=== PATIENT | female | born 1945 ===

== ENCOUNTER 2017-02-14 13:37 | Emergency (ER) | payer MEDICARE, OTHER ==
[2017-02-14 13:37] VITALS: BMI 32.6
[2017-02-14 13:58] VITALS: RESP 18; TEMP 98.5
--- NOTE | 2017-02-14 14:48 | ED PDOC ---
Arrival/HPI - General Chief Complaint: Back Pain Time Seen by Provider: 02/14/17 14:25 Historian: Patient - History of Present Illness Narrative History of Present Illness (Text): 02/14/17 14:37 71yo female with PMhx of Lupus who present with complaint of b/l neck pain. the daughter who translated states it started when she woke up yesterday morning. states she took Aleve last night with some relieve. Her pain is with movement of the neck. She denies nuchal ridigity, fever, rash, focal weakness, back pain , nausea, headache, visual changes, any other complaint. Past Medical History - Provider Review Nursing Documentation Reviewed: Yes - Infectious Disease Hx of Infectious Diseases: None - Tetanus Immunization Tetanus Immunization: Unknown - Cardiac Hx Cardiac Disorders: No Hx Pacemaker: No - Pulmonary Hx Respiratory Disorders: No - Neurological Hx Paralysis: No - HEENT Hx HEENT Disorder: No - Renal Hx Renal Disorder: No - Endocrine/Metabolic Hx Endocrine Disorders: Yes Hx Systemic Lupus Erythematosus: Yes - Hematological/Oncological Hx Blood Transfusions: No Hx Blood Transfusion Reaction: No - Integumentary Hx Dermatological Disorder: No Other/Comment: LUPUS - Musculoskeletal/Rheumatological Hx Musculoskeletal Disorders: No - Gastrointestinal Hx Gastrointestinal Disorders: No - Genitourinary/Gynecological Hx Genitourinary Disorders: No - Psychiatric Hx Emotional Abuse: No Hx Physical Abuse: No Hx Substance Use: No - Surgical History Hx Cholecystectomy: Yes - Anesthesia Hx Anesthesia: Yes Hx Anesthesia Reactions: No Hx Malignant Hyperthermia: No - Suicidal Assessment Feels Threatened In Home Enviroment: No Family/Social History - Physician Review Nursing Documentation Reviewed: Yes Family/Social History: Unknown Family HX Smoking Status: Never Smoked Hx Alcohol Use: No Hx Substance Use: No Hx Substance Use Treatment: No Allergies/Home Meds Allergies/Adverse Reactions: Allergies aspirin Allergy (Mild, Verified 02/14/17 13:54) NAUSEA Home Medications: Home Meds Medication Instructions Recorded Confirmed Hydroxychloroquine Sulfate 200 mg PO BID 10/08/13 02/14/17 [Plaquenil] Atorvastatin [Lipitor] 80 mg PO DAILY 02/05/16 02/14/17 Ergocalciferol (Vitamin D2) 50,000 iu PO DAILY 02/05/16 02/14/17 [Vitamin D2] Folic Acid 1 mg PO DAILY 02/05/16 02/14/17 Ursodiol [Jax Forte] 500 mg PO TID 02/05/16 02/14/17 Ibuprofen [Advil] 200 mg PO PRN PRN 04/15/16 02/14/17 Review of Systems - Physician Review All systems were reviewed & negative as marked: Yes - Review of Systems Constitutional: Normal Eyes: Normal ENT: Normal Respiratory: Normal Cardiovascular: Normal Gastrointestinal: Normal Genitourinary Female: Normal Musculoskeletal: Neck Pain Skin: Normal Neurological: Normal Endocrine: Normal Hemo/Lymphatic: Normal Psychiatric: Normal Physical Exam Vital Signs Reviewed: Yes Vital Signs Temp Pulse Resp BP Pulse Ox 02/14/17 16:38 65 18 128/71 98 02/14/17 15:12 68 18 132/75 98 02/14/17 13:57 98.5 F 67 18 135/81 96 Temperature: Afebrile Blood Pressure: Normal Pulse: Regular Respiratory Rate: Normal Appearance: Positive for: Well-Appearing, Non-Toxic, Comfortable Pain Distress: None Mental Status: Positive for: Alert and Oriented X 3 - Systems Exam Head: Present: Atraumatic, Normocephalic Pupils: Present: PERRL Extroacular Muscles: Present: EOMI Conjunctiva: Present: Normal Mouth: Present: Moist Mucous Membranes Neck: Present: Normal Range of Motion (With pain on lateral movement of neck ), Paraspinal Tenderness (B/L). No: MIDLINE TENDERNESS Respiratory/Chest: Present: Clear to Auscultation, Good Air Exchange. No: Respiratory Distress, Accessory Muscle Use Cardiovascular: Present: Regular Rate and Rhythm, Normal S1, S2. No: Murmurs Abdomen: Present: Normal Bowel Sounds. No: Tenderness, Distention, Peritoneal Signs Back: Present: Normal Inspection Upper Extremity: Present: Normal Inspection. No: Cyanosis, Edema Lower Extremity: Present: Normal Inspection. No: Edema Neurological: Present: GCS=15, CN II-XII Intact, Speech Normal Skin: Present: Warm, Dry, Normal Color. No: Rashes Psychiatric: Present: Alert, Oriented x 3, Normal Insight, Normal Concentration Medical Decision Making ED Course and Treatment: 02/14/17 16:09 71yo female in ED for neck pain she was hemodynamically stable. No meningeal signs. Neurological intact. No fever. Pain most likely MS in nature. Her pain was controlled in ED with Tramadol Cervical Spine xray Disc degeneration on C5-6 and 6-7. Result was DW the pt. She was DC home with Tramadol. Advised to applied warm compress to area. Referred to her PMD. TRT ED for any new or worsening symptoms. - RAD Interpretation Radiology Orders: 02/14/17 14:34 CERVICAL SPINE >18YR W/OBLIQUE [RAD] Stat - Medication Orders Current Medication Orders: Discontinued Medications Tramadol HCl (Ultram) 50 mg PO STAT STA Stop: 02/14/17 14:35 Last Admin: 02/14/17 15:24 Dose: 50 mg MAR Pain Assessment Document 02/14/17 15:24 EQ (Rec: 02/14/17 15:24 EQ [facility] [id number]) Pain Reassessment Is this a pain reassessment? No Sleep Is patient sleeping during reassessment? No Presence of Pain Presence of Pain Yes Disposition/Present on Arrival - Present on Arrival Any Indicators Present on Arrival: No History of DVT/PE: No History of Uncontrolled Diabetes: No Urinary Catheter: No History of Decub. Ulcer: No History Surgical Site Infection Following: None - Disposition Have Diagnosis and Disposition been Completed?: Yes Diagnosis: Neck pain Disposition: HOME/ ROUTINE Disposition Time: 16:15 Patient Plan: Discharge Condition: STABLE Discharge Instructions (ExitCare): Cervical Sprain (ED) Additional Instructions: Take medication as directed Apply warm compress to area Follow up with your doctor Return to ED for any new or worsening symptoms Prescriptions: traMADol [Ultram] 50 mg PO TID #12 tab Referrals: Arvind Lyon MD [Primary Care Provider] - Follow up with primary Forms: [employer] (Hebrew)
[2017-02-14 15:12] VITALS: O2SAT 98
--- NOTE | 2017-02-14 16:04 | RAD ---
PROCEDURE: Cervical Spine Radiographs. HISTORY: Pain. COMPARISON: None. FINDINGS: BONES: Alignment maintained. No fracture. Dens Intact. DISC SPACES: There is disc degeneration at C5-6 and C6-7 SOFT TISSUES: Normal. No prevertebral soft tissue swelling. OTHER FINDINGS: None. IMPRESSION: Disc degeneration at C5-6 and C6-7
[2017-02-14 16:38] VITALS: BP 128/71; PULSE 65
== END 2017-02-14 16:50 | disposition home or self-care (01) ==
LOC: ED 13:37
DX: M54.2 Cervicalgia (principal)

== ENCOUNTER 2017-05-06 13:05 | Emergency (ER) | payer MEDICARE, OTHER ==
[2017-05-06 13:05] VITALS: BMI 32.6
[2017-05-06 13:19] VITALS: TEMP 98.5
--- NOTE | 2017-05-06 13:47 | ED PDOC ---
Arrival/HPI - General Chief Complaint: Trauma Time Seen by Provider: 05/06/17 13:31 Historian: Patient - History of Present Illness Narrative History of Present Illness (Text): 05/06/17 13:50 Lyssa Ribeiro is a 71 year old female, whose past medical history includes lupus and a cholecystectomy, who presents to the emergency department complaining of bilateral knee and wrist pain s/p fall. Patient states she tripped trying to run to the bus. Patient denies any fever, chills, chest pain, shortness of breath, nausea, vomiting, diarrhea, back pain, neck pain, headache, dizziness or any other complaints. Time/Duration: Other (today) Symptom Onset: Sudden Symptom Course: Unchanged Activities at Onset: Light Context: Walking, Street Past Medical History - Provider Review Nursing Documentation Reviewed: Yes - Infectious Disease Hx of Infectious Diseases: None - Tetanus Immunization Tetanus Immunization: Unknown - Cardiac Hx Cardiac Disorders: No Hx Pacemaker: No - Pulmonary Hx Respiratory Disorders: No - Neurological Hx Paralysis: No - HEENT Hx HEENT Disorder: No - Renal Hx Renal Disorder: No - Endocrine/Metabolic Hx Endocrine Disorders: Yes Hx Systemic Lupus Erythematosus: Yes - Hematological/Oncological Hx Blood Transfusions: No Hx Blood Transfusion Reaction: No - Integumentary Hx Dermatological Disorder: No Other/Comment: LUPUS - Musculoskeletal/Rheumatological Hx Musculoskeletal Disorders: No - Gastrointestinal Hx Gastrointestinal Disorders: No - Genitourinary/Gynecological Hx Genitourinary Disorders: No - Psychiatric Hx Emotional Abuse: No Hx Physical Abuse: No Hx Substance Use: No - Surgical History Hx Cholecystectomy: Yes - Anesthesia Hx Anesthesia: Yes Hx Anesthesia Reactions: No Hx Malignant Hyperthermia: No - Suicidal Assessment Feels Threatened In Home Enviroment: No Family/Social History - Physician Review Nursing Documentation Reviewed: Yes Family/Social History: Unknown Family HX Smoking Status: Never Smoked Hx Alcohol Use: No Hx Substance Use: No Hx Substance Use Treatment: No Allergies/Home Meds Allergies/Adverse Reactions: Allergies aspirin Allergy (Mild, Verified 02/14/17 13:54) NAUSEA Home Medications: Home Meds Medication Instructions Recorded Confirmed Hydroxychloroquine Sulfate 200 mg PO BID 10/08/13 02/14/17 [Plaquenil] Atorvastatin [Lipitor] 80 mg PO DAILY 02/05/16 02/14/17 Ergocalciferol (Vitamin D2) 50,000 iu PO DAILY 02/05/16 02/14/17 [Vitamin D2] Folic Acid 1 mg PO DAILY 02/05/16 02/14/17 Ursodiol [Jax Forte] 500 mg PO TID 02/05/16 02/14/17 Ibuprofen [Advil] 200 mg PO PRN PRN 04/15/16 02/14/17 Review of Systems - Physician Review All systems were reviewed & negative as marked: Yes - Review of Systems Constitutional: Normal Eyes: Normal ENT: Normal Respiratory: Normal. absent: SOB, Cough Cardiovascular: Normal. absent: Chest Pain, Palpitations Gastrointestinal: Normal. absent: Abdominal Pain, Diarrhea, Nausea, Vomiting Genitourinary Female: Normal. absent: Dysuria, Frequency, Hematuria, Urine Output Changes Musculoskeletal: Other (knee pain and wrist pain). absent: Back Pain, Neck Pain Skin: Normal. absent: Rash Neurological: Normal. absent: Headache, Dizziness Endocrine: Normal Hemo/Lymphatic: Normal Psychiatric: Normal Physical Exam Vital Signs Reviewed: Yes Vital Signs Temp Pulse Resp BP Pulse Ox 05/06/17 14:51 79 17 140/68 97 05/06/17 13:17 98.5 F 82 18 144/70 98 Temperature: Afebrile Blood Pressure: Normal Pulse: Regular Respiratory Rate: Normal Appearance: Positive for: Well-Appearing, Non-Toxic, Comfortable Pain Distress: None Mental Status: Positive for: Alert and Oriented X 3 - Systems Exam Head: Present: Atraumatic, Normocephalic Pupils: Present: PERRL Extroacular Muscles: Present: EOMI Conjunctiva: Present: Normal Mouth: Present: Moist Mucous Membranes Neck: Present: Normal Range of Motion Respiratory/Chest: Present: Clear to Auscultation, Good Air Exchange. No: Respiratory Distress, Accessory Muscle Use Cardiovascular: Present: Regular Rate and Rhythm, Normal S1, S2. No: Murmurs Abdomen: Present: Normal Bowel Sounds. No: Tenderness, Distention, Peritoneal Signs Back: Present: Normal Inspection Upper Extremity: Present: Tenderness (bilateral wrist tenderness). No: Cyanosis , Edema Lower Extremity: Present: Tenderness (bilateral knee tenderness). No: Edema Neurological: Present: GCS=15, CN II-XII Intact, Speech Normal Skin: Present: Warm, Dry, Normal Color. No: Rashes Psychiatric: Present: Alert, Oriented x 3, Normal Insight, Normal Concentration Medical Decision Making ED Course and Treatment: 05/06/17 13:47 Impression: 71 year old female presents to the emergency department with bilateral knee and wrist pain s/p fall. Plan: -- CT Head -- Xray Knee -- Xray Pelvis -- Xray Wrist Rt/Lt -- Tylenol -- Reassess and disposition Progress Notes: 05/06/17 14:39 CT Head reviewed, shows: HEMORRHAGE: No intracranial hemorrhage. BRAIN: Pick[place]-white matter differentiation is preserved. There is stable dural-based hyperaerated dense lesion along the right posteromedial temporal lobe and right cavernous sinus which may represent a meningioma. There is no mass effect or abnormal extra-axial fluid collection. There is mild age-related global parenchymal volume loss and proportionate enlargement of the ventricles and cortical sulci . CALVARIUM: The skull base and calvarium are normal. PARANASAL SINUSES: Predominantly clear. MASTOID AIR CELLS: Predominantly clear. OTHER FINDINGS: None. IMPRESSION: No acute intracranial abnormality. Stable dural-based lesion along the right posteromedial temporal lobe and cavernous sinus. A dedicated MRI of the brain without and with intravenous contrast on a nonemergent basis is recommended for further evaluation. 05/06/17 15:01 pain improved. no e/o of fx on current imaging. pt advised outpt fu and return precautiosn. - RAD Interpretation Radiology Orders: 05/06/17 13:43 HEAD W/O CONTRAST [CT] Stat WRIST 3 VIEWS BI [RAD] Stat KNEE W PATELLA BILAT 3 VIEW [RAD] Stat 05/06/17 13:44 PELVIS ONE VIEW [RAD] Stat - Medication Orders Current Medication Orders: Discontinued Medications Acetaminophen (Tylenol 325mg Tab) 650 mg PO STAT STA Stop: 05/06/17 13:45 Last Admin: 05/06/17 13:57 Dose: 650 mg MAR Pain/Vitals Document 05/06/17 13:57 SE (Rec: 05/06/17 13:57 SE [id number]) Pain Reassessment Is This A Pain ReAssessment? No Sleep Is patient sleeping during reassessment? No Pain Scale Used Pain Scale Used Numeric - Scribe Statement The provider has reviewed the documentation as recorded by the Scribkaity Starks All medical record entries made by the Scribe were at my direction and personally dictated by me. I have reviewed the chart and agree that the record accurately reflects my personal performance of the history, physical exam, medical decision making, and the department course for this patient. I have also personally directed, reviewed, and agree with the discharge instructions and disposition. Disposition/Present on Arrival - Present on Arrival Any Indicators Present on Arrival: No History of DVT/PE: No History of Uncontrolled Diabetes: No Urinary Catheter: No History of Decub. Ulcer: No History Surgical Site Infection Following: None - Disposition Have Diagnosis and Disposition been Completed?: Yes Diagnosis: Fall, Head injury, Knee sprain, Wrist sprain Disposition: HOME/ ROUTINE Disposition Time: 03:00 Patient Problems: Current Active Problems Problem Status Onset Fall Acute Head injury Acute Knee sprain Acute Wrist sprain Acute Condition: STABLE Discharge Instructions (ExitCare): Preventing Falls in the Older Adult, Knee Sprain (DC), Minor Head Injury, Common Wrist Injuries Additional Instructions: please follow up with your doctor. return to er with worsening symptoms or concerns. Referrals: Arvind Lyon MD [Primary Care Provider] - Follow up with primary Forms: [employer] (Portuguese)
--- NOTE | 2017-05-06 14:40 | CT ---
PROCEDURE: CT HEAD WITHOUT CONTRAST. HISTORY: trauma COMPARISON: 05/31/2014. TECHNIQUE: Axial computed tomography images were obtained through the head/brain without intravenous contrast. Radiation dose: Total exam DLP = 823.94 mGy-cm. This CT exam was performed using one or more of the following dose reduction techniques: Automated exposure control, adjustment of the mA and/or kV according to patient size, and/or use of iterative reconstruction technique. FINDINGS: HEMORRHAGE: No intracranial hemorrhage. BRAIN: Pick[place]-white matter differentiation is preserved. There is stable dural-based hyperaerated dense lesion along the right posteromedial temporal lobe and right cavernous sinus which may represent a meningioma. There is no mass effect or abnormal extra-axial fluid collection. There is mild age-related global parenchymal volume loss and proportionate enlargement of the ventricles and cortical sulci . CALVARIUM: The skull base and calvarium are normal. PARANASAL SINUSES: Predominantly clear. MASTOID AIR CELLS: Predominantly clear. OTHER FINDINGS: None. IMPRESSION: No acute intracranial abnormality. Stable dural-based lesion along the right posteromedial temporal lobe and cavernous sinus. A dedicated MRI of the brain without and with intravenous contrast on a nonemergent basis is recommended for further evaluation.
--- NOTE | 2017-05-06 14:45 | RAD ---
PROCEDURE: Bilateral Wrists Radiographs. HISTORY: trauma COMPARISON: None. FINDINGS: BONES: Right Carpal Bones: Normal. No fracture or degenerative changes. Left Carpal Bones: Normal. No fracture or degenerative changes. Right Distal Radius and Ulna: No fracture or degenerative changes. Left Distal Radius and Ulna: No fracture or degenerative changes. JOINT SPACES: Right Wrist: Normal. No degenerative changes. Left Wrist: Normal. No degenerative changes. SOFT TISSUES: Right Wrist: Normal. Left Wrist: Normal. OTHER FINDINGS: None. IMPRESSION: No acute fracture or dislocation.
--- NOTE | 2017-05-06 14:46 | RAD ---
PROCEDURE: Bilateral Knee Radiographs. HISTORY: Trauma COMPARISON: None. FINDINGS: BONES: Right Knee: Normal. No fracture. Left Knee: Normal. No fracture. JOINTS: Right Knee: Mild tricompartmental degenerative osteoarthrosis. Left knee: Mild tricompartmental degenerative osteoarthrosis. SOFT TISSUES: Right Knee: Normal. Left Knee: Normal. JOINT EFFUSION: Small suprapatellar joint effusions. OTHER FINDINGS: None. IMPRESSION: No acute fracture or dislocation.
--- NOTE | 2017-05-06 14:46 | RAD ---
PROCEDURE: Radiographs of the pelvis. HISTORY: Trauma COMPARISON: None. FINDINGS: BONES: The pelvic ring is intact. There is no acute displaced fracture or bone destruction. Bone alignment is normal. JOINTS: The joint spaces are preserved. OTHER FINDINGS: None. IMPRESSION: No acute displaced fracture or dislocation. Please note occult fractures cannot be excluded on plain radiographs. If there is a persistent clinical concern, an MRI of the hip may be performed for further evaluation.
[2017-05-06 14:52] VITALS: BP 140/68; PULSE 79; RESP 17; O2SAT 97
== END 2017-05-06 15:10 | disposition home or self-care (01) ==
LOC: ED 13:05
DX: S09.90XA Unspecified injury of head, initial encounter (principal); S63.501A Unspecified sprain of right wrist, initial encounter; S63.502A Unspecified sprain of left wrist, initial encounter; S83.91XA Sprain of unspecified site of right knee, initial encounter; S83.92XA Sprain of unspecified site of left knee, initial encounter; W01.0XXA Fall on same level from slipping, tripping and stumbling without subsequent striking against object, initial encounter; Y92.89 Other specified places as the place of occurrence of the external cause

== ENCOUNTER 2018-03-14 11:15 | Emergency (ER) | payer MEDICARE, OTHER ==
[2018-03-14 14:44] VITALS: BMI 32.5
[2018-03-14 14:46] LABS: URINE BILIRUBIN NEGATIVE (NEGATIVE); URINE BLOOD NEGATIVE (NEGATIVE); URINE GLUCOSE (UA) NEGATIVE (NEGATIVE); URINE LEUKOCYTE ESTERASE TRACE Leu/uL (NEGATIVE); URINE PROTEIN NEGATIVE mg/dL (<30 mg/dL); URINE UROBILINOGEN 0.2 E.U./dL (<1 E.U./dL)
[2018-03-14 15:08] LABS: URINE APPEARANCE CLEAR (CLEAR); URINE COLOR YELLOW (YELLOW)
[2018-03-14 15:11] LABS: URINE RBC 0 - 2 /hpf (0-2)
[2018-03-14 15:12] LABS: URINE AMORPHOUS SEDIMENT FEW /hpf; URINE BACTERIA MOD /hpf
== END 2018-03-14 18:13 | disposition home or self-care (01) ==
LOC: ED 11:15
DX: M79.18 Myalgia, other site (principal); E78.5 Hyperlipidemia, unspecified; M32.9 Systemic lupus erythematosus, unspecified

== ENCOUNTER 2018-07-11 10:46 | Outpatient (CLI) | payer MEDICARE, OTHER | END 2018-07-11 10:47 | disposition home or self-care (01) | LOC: RAD 10:46 | DX: Z12.31 Encounter for screening mammogram for malignant neoplasm of breast (principal); E04.1 Nontoxic single thyroid nodule ==